=== PATIENT | female | born 1975 | race Caucasian/White ===

== ENCOUNTER 2018-12-03 12:00 | Outpatient (REF) | payer OTHER, SELFPAY ==
[2018-12-03 22:11] LABS: ALT 36 U/L (12-78); AST 23 U/L (15-37); Albumin 3.7 g/dL (3.4-5.0); Alkaline Phosphatase 78 U/L (46-116); Anion Gap 9.5 mmol/L (3-11); BUN 12 mg/dL (7-18); Bilirubin, Total 0.3 mg/dL (0.2-1.0); CO2 25.5 mmol/L (21.0-32.0); CREATININE 0.72 mg/dL (0.55-1.02); Calcium 9.3 mg/dL (8.5-10.1); Chloride 106 mmol/L (98-107); Glucose 104 mg/dL (70-100); Potassium 4.4 mmol/L (3.5-5.1); Sodium 141 mmol/L (136-145)
== END 2018-12-03 12:20 ==
LOC: NCHCN 12:00
PROVIDERS: PCP Internal Medicine; Visit Provider Family Medicine
DX: B35.1 Tinea unguium (principal); L03.031 Cellulitis of right toe
CPT/HCPCS: 80053

== ENCOUNTER 2019-01-28 09:40 | Outpatient (REF) | payer OTHER, SELFPAY ==
[2019-01-28 22:05] LABS: ALT 26 U/L (12-78); AST 19 U/L (15-37); Albumin 4.2 g/dL (3.4-5.0); Alkaline Phosphatase 86 U/L (46-116); Bilirubin, Direct 0.12 mg/dL (0.00-0.20); Bilirubin, Total 0.8 mg/dL (0.2-1.0); Total Protein 7.8 g/dL (6.4-8.2)
== END 2019-01-28 10:00 ==
LOC: NCHCN 09:40
PROVIDERS: PCP Internal Medicine; Visit Provider Family Medicine
DX: B35.1 Tinea unguium (principal)
CPT/HCPCS: 80076

== ENCOUNTER 2019-08-07 16:43 | Outpatient (REF) | payer OTHER, SELFPAY ==
--- NOTE | 2019-08-07 16:00 | PAPFT_PTH ---
PATIENT: Lindsey Gerardo LOC: [facility] U#:[id number] AGE/SX: 44/F ROOM: RE08/07/[address]: Alex Maloney MD : 1975 BED: DIS: 08/07/2019 SPEC #: [id number] RECD: 08/07/19 18:01 STATUS: ERMELINDA REMarlena #: [id number] RIN: 08/07/19 16:[address]: Alex Maloney DEPT: [facility] Cytology RECD BY: Charline Wong ENTERED: 08/07/19 18:01 SP TYPE: PAPFT OTHR DR: Erickson Seo Tissues: 1 - CX/ENDOCX FOR PAP SMEARS Procedures: PAP THIN PREP/UVM Screening HPV DNA PROBE Comments: [id number]
== END 2019-08-07 17:03 ==
LOC: LBN 16:43
PROVIDERS: PCP Internal Medicine; Visit Provider Obstetrics & Gynecology
DX: Z12.4 Encounter for screening for malignant neoplasm of cervix (principal); Z11.51 Encounter for screening for human papillomavirus (HPV)
CPT/HCPCS: 88142; 87624

== ENCOUNTER 2019-09-02 01:10 | Outpatient (CLI) | payer OTHER, SELFPAY ==
--- NOTE | 2019-09-02 11:52 | DI.MAMMO_ITS ---
EXAM: MG MAMMO SCREENING CLINICAL HISTORY: Screening malignant neoplasm of the breast. Z12.39. TECHNIQUE: Bilateral full field digital CC and MLO mammographic images were obtained with 3D tomosyn thesis and utilizing computer aided detection (CAD). COMPARISON: There are multiple priors with the most recent from 12/29/2014. FINDINGS: Masses/Architectural Distortion: None seen. Microcalcifications: No suspicious pleomorphic-type are seen. IMPRESSION: 1. No significant interval change with no specific features of malignancy noted. 2. Unless there is more urgent need, screening mammography is recommended, as per [employer] guidelines. ACR BI-RAD Category- 1 Negative Breast Density - Category B - Scattered areas of fibroglandular density A negative radiographic report should not delay biopsy if a dominant or clinically suspicious mass is present. Up to ten percent of cancers are not identified on mammography. A negative report may reinforce clinical impression. Adenosis and dense breasts may obscure an underlying neoplasm. False positive reports average 6 to 10%.
== END 2019-09-02 01:30 ==
PROVIDERS: PCP Internal Medicine; Visit Provider Obstetrics & Gynecology
DX: Z12.31 Encounter for screening mammogram for malignant neoplasm of breast (principal)
CPT/HCPCS: 77063; 77067

== ENCOUNTER 2019-09-23 08:54 | Outpatient (CLI) | payer OTHER, SELFPAY ==
[2019-09-23 09:39] LABS: Bilirubin Negative (Negative); Blood Negative (Negative); Clarity Clear (Clear); Glucose Negative (Negative); Ketones Negative (Negative); Leukocyte Esterase Negative (Negative); Nitrite Negative (Negative); Urobilinogen 0.2 EU/dL (Up TO 0.2); pH 6.5 (5-8)
[2019-09-23 10:11] LABS: Abs Immature Grans 0.01 k/cumm (0.0-0.09); Absolute Basophil Count 0.02 k/cumm (0.0-0.2); Absolute Lymphocyte Count 1.62 k/cumm (1.2-3.4); Absolute Monocyte Count 0.49 k/cumm (0.11-0.7); Absolute Neutrophil Count 4.54 k/cumm (1.2-6.7); Basophils % 0.3; Eosinophils % 2.9; HCT 42.5 % (36.0-46.0); HGB 14.3 g/dL (12.0-15.5); Immature Grans % 0.1; Lymphocytes % 23.5; Mean Corp. HGB Concentration 33.6 g/dL (32.0-36.0); Mean Corpuscular Hemoglobin 28.7 pg (27.0-33.0); Mean Corpuscular Volume 85.2 fL (80-95); Mean Platelet Volume 9.9 fL (8.0-11.0); Monocytes % 7.1; Neutrophils % 66.1; Platelet Count 289 x1000/uL (130-400); RBC 4.99 m/cumm (4.00-5.20); RBC Distribution Width 12.5 % (11.7-14.6); White Blood Cell Count 6.88 k/cumm (4.4-10.8)
[2019-09-23 10:47] LABS: Hemoglobin A1C 5.9 % (4.5-6.2)
[2019-09-23 13:33] LABS: ALT 28 U/L (14-59); AST 13 U/L (15-37); Alkaline Phosphatase 88 U/L (46-116); Anion Gap 8.6 mmol/L (3-11); BUN 11 mg/dL (7-18); CO2 27.4 mmol/L (21.0-32.0); CREATININE 0.72 mg/dL (0.55-1.02); Calcium 9.4 mg/dL (8.5-10.1); Calculated LDL 145 mg/dL; Chloride 105 mmol/L (98-107); Cholesterol 215 mg/dL (50-200); Ferritin 78 ng/mL (8-388); Glucose 97 mg/dL (70-100); HDL Cholesterol 47 mg/dL (40-60); Potassium 4.1 mmol/L (3.5-5.1); Sodium 141 mmol/L (136-145); Total Protein 7.4 g/dL (6.4-8.2); Triglyceride 117 mg/dL (30-150); Vitamin B12 573 pg/mL (193-986)
[2019-09-23 13:54] LABS: Iron 127 ug/dL (50-175); Total Iron Binding Capacity 290 ug/dL (250-450); Transferrin Sat 44 % (15-50)
[2019-09-24 05:59] LABS: Vitamin D 25 Total 72.5 ng/ml (30-100)
[2019-09-24 10:54] LABS: Campylobacter PCR SEE COMMENTS; Salmonella PCR SEE COMMENTS; Shiga Toxin PCR SEE COMMENTS; Shigella/Enteroinvasive Ecoli SEE COMMENTS
[2019-09-24 12:51] LABS: Thyroglobulin Antibody <15 U/mL (<61); Thyroperoxidase Antibody <28 U/mL (<61)
== END 2019-09-23 09:14 ==
PROVIDERS: PCP Internal Medicine; Visit Provider Naturopath
DX: E03.9 Hypothyroidism, unspecified (principal); E55.9 Vitamin D deficiency, unspecified; Z00.00 Encounter for general adult medical examination without abnormal findings; D53.9 Nutritional anemia, unspecified; D50.9 Iron deficiency anemia, unspecified; R42 Dizziness and giddiness; R53.83 Other fatigue; Z13.1 Encounter for screening for diabetes mellitus; Z13.220 Encounter for screening for lipoid disorders; K44.9 Diaphragmatic hernia without obstruction or gangrene; F51.09 Other insomnia not due to a substance or known physiological condition; R12 Heartburn; E66.9 Obesity, unspecified
CPT/HCPCS: 36415; 80053; 80061; 82306; 87505; 81003; 82607; 82728; 83036; 83540; 83550; 85025; 86376; 86800

== ENCOUNTER 2020-06-10 12:42 | Emergency (ER) | payer OTHER, SELFPAY ==
[2020-06-10] VITALS (10 sets, daily range): BP systolic 132–156; BP diastolic 59–70; PULSE 57–75; RESP 13–23; TEMP 36.8; O2SAT 98–100
--- NOTE | 2020-06-10 12:45 | RT.EKG_ITS ---
APPROVED REPORT Exam: Resting ECG Patient Location: E HR:59 bpm ECG Measurements Heart Rate 59 AXIS NV 227 P 70 QRSd 85 QRS 1 QT 401 T 16 QTc 399 <Conclusion> Sinus bradycardia...rate< 60 Prolonged NV interval...NV >210, V-rate 50- 90 Probable left atrial enlargement...P >50mS, <-0.10mV V1. No acute ST ischemic findings. I have reviewed and interpreted ECG and agree with software generated interpretation. No old EKG to compare.
--- NOTE | 2020-06-10 13:28 | ED.GENADUL_ITS ---
Discharge Plan Disposition Patient Disposition: HOME Condition: Good Discharge Details Chief Complaint: Palpitatns Clinical Impression: Chronic chest pain, Palpitations Primary Care Provider: Dalia Dougherty ED Provider: Jenise Edward Home Meds and New Rx's Prescriptions: New levothyroxine 50 mcg capsule 50 mcg PO DAILY Qty: 30 RF: 0 Continued cholecalciferol (vitamin D3) 2,000 UNIT tablet 2,000 unit PO RF: 0 Probiotic 1 EACH capsule 1 ea PO RF: 0 qnavmndkyazh-eeab-bhaac acid [Daily Multiple] 1 EACH tablet 1 ea PO RF: 0 mag/potassium 1 tab DAILY RF: 0 folic acid 0.4 MG tablet 0.4 mg PO DAILY RF: 0 liothyronine 5 MCG tablet 15 mcg PO DAILY RF: 0 Cyanocobalamin (Vitamin B-12) [Vitamin B-12] 1,000 MCG capsule 1,000 mcg PO DAILY RF: 0 albuterol sulfate 90 mcg/actuation HFA aerosol inhaler INHALATION RF: 0 Discontinued levothyroxine 75 MCG tablet 75 mcg PO DAILY RF: 0 Discharge Instructions Instructions: Heart Palpitations (ED), Chronic Pain (ED) Additional Instructions: Drink plenty of fluids and get plenty of rest. Alternate tylenol and motrin as needed and directed for pain. Return the Holter monitor to the hospital as directed. Decrease your dose of levothyroxine from 75 mcg to 50 mcg daily. Follow-up with your primary care doctor in 1 week for reevaluation and for referral for outpatient Zio patch and echocardiogram if symptoms persist or worsen and for repeat TSH level within a few weeks. Return to the emergency department with any worsening or new concerning symptoms. Discharge Data Discharge Date/Time-TO BE ENTERED AT DEPARTURE: 06/10/20 16:10 Discharge Physician: Jenise Edward Medical Decision Making 1310 -- 45-year-old female with a history of hypothyroidism, hyperlipidemia, prediabetes presents for intermittent chest pressure and palpitations for the past 3 months. Also admits to intermittent perioral and arm paresthesias. EKG notes a rate of 59, sinus with no acute ST ischemic findings. Patient appears mildly anxious. Blood pressure mildly hypertensive. No acute findings on exam. Differential diagnosis includes ACS, arrhythmia, electrolyte abnormality, anxiety, hyperthyroid due to levothyroxine, PE, dehydration. History and presentation not consistent with dissection. Patient denies any symptoms at present. Will place an IV, screening labs, chest x-ray and reassess. test negative. 1445 -- Labs and imaging reviewed. TSH 0.28. Normal free T4. Chest x-ray negative. Results discussed with patient and advised to decrease her dose of Synthroid from 75 mcg to 50 mcg daily. Advised to call her primary care doctor for follow-up for referral for outpatient recheck of TSH and free T4. Patient also had Holter monitor placed. She is advised to return as instructed. She also is advised to call her PCP on Saturday morning for follow-up and for reevaluation and for referral for zio patch and echo if symptoms do not improve or worsen. Medical Records Medical records reviewed: Yes I reviewed the patient's medical records. Imaging Data Radiologic Study: Radiologist's impression: XR CHEST 2V PA LATERAL CLINICAL HISTORY: chest pressure, r/o acute disease TECHNIQUE: 2D digital imaging was performed. COMPARISON: No exams were available for comparison FINDINGS: MEDIASTINUM: Normal. HEART: Normal. PULMONARY VASCULATURE: Normal. LUNGS: Clear. PLEURAL SPACE: No pleural effusion or pneumothorax. BONE:Normal. OTHER FINDINGS:Normal. IMPRESSION: No acute pulmonary findings. Lab Data Lab results reviewed: Yes I reviewed the patient's lab results. Labs: Laboratory Tests Range/Units 06/10/20 06/10/20 06/10/20 13:30 13:30 13:30 WBC (4.4-10.8) k/cumm 7.63 RBC (4.00-5.20) m/cumm 4.77 Hgb (12.0-15.5) g/dL 13.8 Hct (36.0-46.0) % 41.8 MCV (80-95) fL 87.6 MCH (27.0-33.0) pg 28.9 MCHC (32.0-36.0) g/dL 33.0 RDW (11.7-14.6) % 12.7 Plt Count (130-400) x1000/uL 315 MPV (8.0-11.0) fL 9.6 Immature Gran % % 0.1 Neutrophils % 64.9 Lymphocytes % 23.7 Monocytes % 8.4 Eosinophils % 2.5 Basophils % 0.4 Absolute Neutrophils (1.2-6.7) k/cumm 4.95 Absolute Lymphocytes (1.2-3.4) k/cumm 1.81 Absolute Monocytes (0.11-0.7) k/cumm 0.64 Absolute Eosinophils (0.0-0.7) k/cumm 0.19 Absolute Basophils (0.0-0.2) k/cumm 0.03 D-Dimer (<500) ng/mlFEU Sodium (136-145) mmol/L 140 Potassium (3.5-5.1) mmol/L 4.2 Chloride (98-107) mmol/L 104 Carbon Dioxide (21.0-32.0) mmol/L 29.5 Anion Gap (3-11) mmol/L 6.5 BUN (7-18) mg/dL 11 Creatinine (0.55-1.02) mg/dL 0.74 Estimated GFR/1.73 m2 (mL/min/1.73m2) >= 60.00 Glucose (74-106) mg/dL 108 H Calcium (8.5-10.1) mg/dL 9.2 Magnesium (1.8-2.4) mg/dL 2.0 Total Bilirubin (0.2-1.0) mg/dL 0.5 AST (15-37) U/L 25 ALT (14-59) U/L 38 Alkaline Phosphatase (46-116) U/L 70 Troponin I (<0.06) ng/mL < 0.05 Total Protein (6.4-8.2) g/dL 7.2 Albumin (3.4-5.0) g/dL 3.8 TSH (0.36-3.74) uIU/mL 0.28 L Free T4 (0.76-1.46) ng/dL 0.96 Range/Units 06/10/20 13:30 WBC (4.4-10.8) k/cumm RBC (4.00-5.20) m/cumm Hgb (12.0-15.5) g/dL Hct (36.0-46.0) % MCV (80-95) fL MCH (27.0-33.0) pg MCHC (32.0-36.0) g/dL RDW (11.7-14.6) % Plt Count (130-400) x1000/uL MPV (8.0-11.0) fL Immature Gran % % Neutrophils % Lymphocytes % Monocytes % Eosinophils % Basophils % Absolute Neutrophils (1.2-6.7) k/cumm Absolute Lymphocytes (1.2-3.4) k/cumm Absolute Monocytes (0.11-0.7) k/cumm Absolute Eosinophils (0.0-0.7) k/cumm Absolute Basophils (0.0-0.2) k/cumm D-Dimer (<500) ng/mlFEU 200 Sodium (136-145) mmol/L Potassium (3.5-5.1) mmol/L Chloride (98-107) mmol/L Carbon Dioxide (21.0-32.0) mmol/L Anion Gap (3-11) mmol/L BUN (7-18) mg/dL Creatinine (0.55-1.02) mg/dL Estimated GFR/1.73 m2 (mL/min/1.73m2) Glucose (74-106) mg/dL Calcium (8.5-10.1) mg/dL Magnesium (1.8-2.4) mg/dL Total Bilirubin (0.2-1.0) mg/dL AST (15-37) U/L ALT (14-59) U/L Alkaline Phosphatase (46-116) U/L Troponin I (<0.06) ng/mL Total Protein (6.4-8.2) g/dL Albumin (3.4-5.0) g/dL TSH (0.36-3.74) uIU/mL Free T4 (0.76-1.46) ng/dL ECG Data Attestation: I personally reviewed and interpreted this ECG (s) as follows: Interpretation: Rate of 59, sinus, no acute ST elevation or depression. [place] 227. QRS 85. QTc 399. HPI General Mode of arrival: ambulatory . Date/Time Provider Initiated Documentation: 06/10/20 13:07 . Limitations to Documentation: no limitations . Information obtained by: patient . HPI Narrative: Patient is a 45-year-old female with a history of hypothyroidism, hyperlipidemia and prediabetes who presents for intermittent chest pressure and palpitations for the past 3 months. 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 She states sometimes the symptoms are improved with rest. She admits to intermittent palpitations and chest pressure which wakes her from sleep at night as well. She also admits to intermittent tingling around her lips and in her left arm. She denies any fever, cough, nausea, vomiting, dizziness, shortness of breath, leg pain or swelling, recent surgery or recent travel. Denies any recent new stressors. Related Data Home Medications Medication Instructions Recorded Confirmed Probiotic 1 ea PO 12/23/13 08/07/19 cholecalciferol (vitamin D3) 2,000 unit PO 12/23/13 08/07/19 Mag/Potassium 1 tab DAILY 03/07/16 08/07/19 tdyytcpfggaz-bnwa-dqdqx acid 1 ea PO 03/07/16 [Daily Multiple] Cyanocobalamin (Vitamin B-12) 1,000 mcg PO DAILY tab 03/19/18 08/07/19 [Vitamin B-12] folic acid 0.4 mg PO DAILY tab-cap 03/19/18 08/07/19 liothyronine 15 mcg PO DAILY tab-cap 03/19/18 08/07/19 albuterol sulfate INHALATION 06/10/20 06/10/20 levothyroxine 50 mcg PO DAILY #30 cap 06/10/20 Previous Rx's Medication Instructions Recorded levothyroxine 50 mcg PO DAILY #30 cap 06/10/20 Allergies Allergy/AdvReac Type Severity Reaction Status Date / Time nickel Allergy Intermediate Rash Unverified 06/10/20 12:57 Influenza Virus Vaccines Allergy Rash, Unverified 06/10/20 12:57 swelling General Stated Complaint: Palpitatns JUAN: 3 Review of Systems All systems reviewed & are unremarkable except as noted in HPI and below Constitutional Constitutional: Reports as per HPI, Denies chills and Denies fever(s) Eyes Eyes: Denies blurry vision ENT Ears, Nose, Mouth, and Throat: Denies dizziness, Denies sore throat and Denies throat swelling Cardiovascular Cardiovascular: Reports chest pain, Reports palpitations and Denies dyspnea Respiratory Respiratory: Denies cough and Denies dyspnea Gastrointestinal Gastrointestinal: Denies abdominal pain, Denies diarrhea and Denies vomiting Genitourinary Genitourinary: Denies hematuria and Denies dysuria Musculoskeletal Musculoskeletal: Denies back pain and Denies numbness Integumentary/Breasts Skin/Breast: Denies lesions and Denies rash Neurologic Neurologic: Denies dizziness, Denies localized weakness and Denies numbness Endocrine Endocrine: Reports palpitations Allergic/Immunologic Allergic/Immunologic: Denies throat swelling [facility] Medical History (Updated 06/10/20 @ 15:38 by Jenise Edward DO) Hypothyroidism (Chronic) Prediabetes (Acute) Surgical History (Updated 06/10/20 @ 14:44 by Jenise Edward DO) No significant past surgical history (Acute) Social History Smoking/Tobacco Use Status: Never Alcohol Intake: never Substance use type: does not use Do you feel safe at home: Yes Do you feel safe in your relationship?: Yes Exam Const General: cooperative, healthy appearing and anxious (mild) HENMT Head: normal to inspection Face and sinus: normal facial exam Eyes General: appearance normal, both eyes and all related structures EOM: EOM intact bilaterally Neck Neck: normal visual inspection and No submandibular swelling Lymphatic: no lymphadenopathy noted Chest Chest: normal inspection of the chest and no tenderness Resp Effort & Inspection: normal respiratory effort and able to speak in complete sentences Auscultation: clear to auscultation bilaterally Cardio Rate: regular rate Rhythm: regular rhythm GI Inspection: normal to inspection Palpation: soft, not firm, not rigid and nontender Auscultation: normal bowel sounds Skin General skin exam: no rashes or lesions noted Neuro General: patient alert, patient awake and patient oriented x3 Cognition: normal cognition Speech: speech normal Motor: muscle tone normal throughout Sensory Exam: no sensory deficits noted Extrem General: normal to inspection, full ROM, capillary refill normal, no calf tenderness bilaterally and no edema Psych Appearance: grossly normal Mental Status: mental status grossly normal Speech and Movement: speech and movement normal Affect: normal affect Course Vital Signs Vital signs: Vital Signs Temperature 98.2 F 06/10/20 12:51 Pulse 64 06/10/20 12:51 Respiratory Rate 18 06/10/20 12:51 Blood Pressure 156/59 H 06/10/20 12:51 Pulse Oximetry 99 06/10/20 12:51 Temperature 98.2 F 06/10/20 12:51 Temperature Source Skin 06/10/20 12:51 Pulse 64 06/10/20 12:51 Respiratory Rate 18 06/10/20 12:51 Respiratory Effort 06/10/20 12:56 Blood Pressure 156/59 H 06/10/20 12:51 Pulse Oximetry 99 06/10/20 12:51 Oxygen Delivery Method Room Air 06/10/20 12:51 Oxygen Flow Rate 0 06/10/20 12:51 Pain Level 1 06/10/20 12:51
[2020-06-10 13:42] LABS: Abs Immature Grans 0.01 k/cumm (0.0-0.09); Absolute Basophil Count 0.03 k/cumm (0.0-0.2); Absolute Eosinophil Count 0.19 k/cumm (0.0-0.7); Absolute Lymphocyte Count 1.81 k/cumm (1.2-3.4); Absolute Monocyte Count 0.64 k/cumm (0.11-0.7); Absolute Neutrophil Count 4.95 k/cumm (1.2-6.7); Basophils % 0.4; Eosinophils % 2.5; HCT 41.8 % (36.0-46.0); HGB 13.8 g/dL (12.0-15.5); Immature Grans % 0.1 %; Lymphocytes % 23.7; Mean Corpuscular Hemoglobin 28.9 pg (27.0-33.0); Mean Corpuscular Volume 87.6 fL (80-95); Mean Platelet Volume 9.6 fL (8.0-11.0); Monocytes % 8.4; Neutrophils % 64.9; Platelet Count 315 x1000/uL (130-400); RBC 4.77 m/cumm (4.00-5.20); RBC Distribution Width 12.7 % (11.7-14.6); White Blood Cell Count 7.63 k/cumm (4.4-10.8)
--- NOTE | 2020-06-10 13:45 | DI.RAD_ITS ---
EXAM: XR CHEST 2V PA LATERAL CLINICAL HISTORY: chest pressure, r/o acute disease TECHNIQUE: 2D digital imaging was performed. COMPARISON: No exams were available for comparison FINDINGS: MEDIASTINUM: Normal. HEART: Normal. PULMONARY VASCULATURE: Normal. LUNGS: Clear. PLEURAL SPACE: No pleural effusion or pneumothorax. BONE:Normal. OTHER FINDINGS:Normal. IMPRESSION: No acute pulmonary findings. DATA REPOSITORY: RADIATION DOSE DELIVERED:
[2020-06-10 13:59] LABS: ALT 38 U/L (14-59); AST 25 U/L (15-37); Albumin 3.8 g/dL (3.4-5.0); Alkaline Phosphatase 70 U/L (46-116); Anion Gap 6.5 mmol/L (3-11); BUN 11 mg/dL (7-18); Bilirubin, Total 0.5 mg/dL (0.2-1.0); CO2 29.5 mmol/L (21.0-32.0); CREATININE 0.74 mg/dL (0.55-1.02); Calcium 9.2 mg/dL (8.5-10.1); Chloride 104 mmol/L (98-107); Glucose 108 mg/dL (74-106); Potassium 4.2 mmol/L (3.5-5.1); Sodium 140 mmol/L (136-145); Total Protein 7.2 g/dL (6.4-8.2); Troponin I < 0.05 ng/mL (<0.06)
[2020-06-10 14:06] LABS: TSH (W/Ref FT4) 0.28 uIU/mL (0.36-3.74)
[2020-06-10 14:22] LABS: FREE T4 0.96 ng/dL (0.76-1.46)
[2020-06-10 14:35] LABS: D-Dimer 200 ng/mlFEU (<500)
== END 2020-06-10 16:10 | disposition home or self-care (01) ==
PROVIDERS: Emergency Provider Physician Assistant; PCP Nurse Practitioner Family
DX: R00.2 Palpitations (principal); R07.89 Other chest pain; G89.29 Other chronic pain; R73.03 Prediabetes; R20.2 Paresthesia of skin; E03.9 Hypothyroidism, unspecified
CPT/HCPCS: 36415; 80053; 82962; 93005; 99285; 71046; 83735; 84439; 84443; 84484; 85025; 85379; 93010; 93225

== ENCOUNTER 2020-06-13 10:42 | Outpatient (CLI) | payer OTHER, SELFPAY ==
--- NOTE | 2020-06-14 08:14 | W.HOLTRPT ---
Date of service: 06/14/20 Time of Service: 08:14 Holter Monitor Report Holter Monitor Note: This is a 48-hour Holter monitor The rhythm throughout was sinus. Average heart rate was 76 bpm. Minimum was 53 and maximum 147 There were no ventricular dysrhythmias There were very rare atrial premature beats, a total of 7 in 48 hours Patient symptoms of palpitations and chest pain did not correspond to any dysrhythmia
== END 2020-06-13 11:02 ==
PROVIDERS: PCP Nurse Practitioner Family; Visit Provider Physician Assistant
DX: R00.2 Palpitations (principal); R07.9 Chest pain, unspecified
CPT/HCPCS: 93226

== ENCOUNTER 2020-07-22 07:23 | Outpatient (CLI) | payer OTHER, SELFPAY ==
[2020-07-23 14:49] LABS: COVID-19 RT-PCR Result NEGATIVE (Negative)
== END 2020-07-22 07:43 ==
PROVIDERS: PCP Nurse Practitioner Family; Visit Provider Surgery
DX: Z11.59 Encounter for screening for other viral diseases (principal); Z01.818 Encounter for other preprocedural examination
CPT/HCPCS: U0003

== ENCOUNTER 2020-07-26 08:18 | Day surgery (SDC) | payer OTHER, SELFPAY ==
--- NOTE | 2020-07-26 08:29 | PDOC.DSDIS_ITS ---
Discharge Plan Disposition Patient Disposition: HOME Condition: Good Discharge Details Reason For Visit: EGD Attending Provider: Britta Jones Primary Care Provider: Dalia Dougherty Home Meds and New Rx's Prescriptions: Continued cholecalciferol (vitamin D3) 2,000 UNIT tablet 2,000 unit PO DAILY RF: 0 Probiotic 1 EACH capsule 1 ea PO DAILY RF: 0 Daily Multiple 1 EACH tablet 1 ea PO DAILY RF: 0 mag/potassium 1 tab DAILY RF: 0 folic acid 0.4 MG tablet 0.4 mg PO DAILY RF: 0 liothyronine 5 MCG tablet 15 mcg PO DAILY RF: 0 Cyanocobalamin (Vitamin B-12) [Vitamin B-12] 1,000 MCG capsule 1,000 mcg PO DAILY RF: 0 acyclovir 400 mg tablet 400 mg PO DAILY RF: 0 omeprazole 20 mg capsule,delayed release(DR/EC) 20 mg PO BID RF: 0 Zyrtec 10 mg capsule 10 mg PO DAILY RF: 0 fexofenadine 180 mg tablet 180 mg PO DAILY RF: 0 fluticasone propionate [Flonase Allergy Relief] 50 mcg/actuation spray,suspension 1 spray JOSE DAILY RF: 0 ProAir RespiClick 90 mcg/actuation aerosol powdr breath activated 2 inh IH Q6H PRNRF: 0 levothyroxine 50 mcg capsule 50 mcg PO DAILY Qty: 30 RF: 0 Discharge Instructions Additional Instructions: Findings: The stomach and esophagus looked normal with the exception of a small hiatal hernia. Routine biopsies were done - my office will contact you if abnormal. Please call if you develop: fevers >101.5 Nausea or Vomiting Chest or Abdominal pain that is not tr ansient DAY SURGERY UNIT POST EGD INSTRUCTIONS 1. Because there will be medication in your system for the next 24 hours, you may feel a little sleepy. Your coordination will be affected. Therefore: a. Do not drive or operate dangerous equipment for 24 hours. b. Do not drink alcohol beverages for 24 hours (not even beer). c. Plan to go home and rest for the day. 2. Generally there are no restrictions on your activity after a day or so has gone by, but you may feel a bit fatigued for a few days. 3 After you arrive home you may have a light meal and return to a normal diet as you can tolerate it without feeling sick to your stomach. 4. After surgery, you may feel pain or discomfort. This should be only transient, but if it persists please contact your doctor. 5. If there are any questions regarding the findings of your procedure, please feel free to contact your doctor. 6. If you are unable to contact your doctor with a problem, contact the hospital at [phone]. 7. Continue all your regular medications unless directed otherwise. I understand the above instructions and have no questions. Signature of Patient or Responsible Adult Escort Date/Time Name of Responsible Adult Escort Signature of Nurse Date/Time Activity:: Activity as Tolerated Diet:: As Tolerated Discharge Orders Discharge Orders: Discharge Order (Routine); Ordered 07/26/20 Ordered By: Britta Jones DS: Diagnosis Discharge Diagnosis (1) Hiatal hernia: Status: Chronic
--- NOTE | 2020-07-26 08:30 | W.PM.ENDDOP ---
Date of service: 07/26/20 Time of Service: 09:38 Endoscopy Report DATE OF PROCEDURE: 07/26/20 PRE-OP DIAGNOSIS: GERD POST-OP DIAGNOSIS: other (Small hiatal hernia) PROCEDURE: EGD with gastric and duodenal biopsies SURGEON: Britta Jones ANESTHESIA: MAC INDICATIONS: This 45 year old woman presents for evaluation of acid reflux. She has epigastric pain, nausea and a fullness in her throat. Prior EGD about 15 years ago showed esophagitis. PROCEDURE DESCRIPTION: The patient was placed in the left lateral position and propofol titrated to sedation. The endoscope was advanced into the esophagus under direct visualization. The scope was passed through the stomach and into the duodenum. There was no duodenitis or ulceration noted. Biopsies were taken from the second portion of the duodenum to evaluate for celiac disease. The stomach itself was normal including on retroflexed view of the fundus and lesser curvature with the exception of a small hiatal hernia. Routine biopsies were taken from the gastric antrum. The GE junction was inspected and showed no significant stricture, inflammation, masses or Barretts. The scope was slowly withdrawn with no other esophageal lesions found. The patient tolerated the procedure well and was stable to recovery.
[2020-07-26 08:33] VITALS: BP 130/83; PULSE 69; RESP 16; TEMP 36.6; O2SAT 97
[2020-07-26] MEDS: Lactated Ringers 1,000 ML 80 ML IV (09:09)
--- NOTE | 2020-07-26 09:23 | STOM_PTH ---
PATIENT: Lindsey Gerardo LOC: [facility] U#:[id number] AGE/SX: 45/F ROOM: RE07/26/[address]: Britta Jones MD : 1975 BED: DIS: 07/26/2020 SPEC #: [id number] RECD: 07/26/20 12:35 STATUS: ERMELINDA REMarlena #: [id number] RIN: 07/26/20 09:[address]: Britta Jones DEPT: Surgical Specimen RECD BY: Charline Wong ENTERED: 07/26/20 12:36 SP TYPE: STOMACH OTHR DR: Dalia Dougherty Tissues: 1 - BIOPSY BOWEL 2 - STOMACH BIOPSY Procedures: GROSS AND MICRO LEVEL 4 Comments: [id number]
[2020-07-26 10:10] VITALS: BP 125/82; PULSE 57; RESP 16; TEMP 36.6; O2SAT 94
== END 2020-07-26 10:19 | disposition home or self-care (01) ==
PROVIDERS: PCP Nurse Practitioner Family; Visit Provider Surgery
PROC: 0DJ68ZZ Inspection of Stomach, Via Natural or Artificial Opening Endoscopic (ICD-10-PCS; CPT 43235; principal; 2020-07-26 09:15)
DX: K21.9 Gastro-esophageal reflux disease without esophagitis (principal); K44.9 Diaphragmatic hernia without obstruction or gangrene
CPT/HCPCS: 43239; 88305; J2001

== ENCOUNTER 2020-07-29 04:02 | Outpatient (CLI) | payer OTHER, SELFPAY ==
--- NOTE | 2020-07-29 06:15 | DI.US_ITS ---
EXAM: US ABDOMEN CLINICAL HISTORY: Epigastric pain, nausea,r10.13 TECHNIQUE: Ultrasound performed using standard protocol. COMPARISON: US PELVIS TRANSVAG from 03/28/2011 FINDINGS: Examination was technically limited due to the patient's body habitus. Significant portions of the l iver were nonvisualized. There is increased hepatic echogenicity consistent with hepatic steatosis. No evidence of cholelithiasis or biliary dilatation. Pancreas incompletely visualized, grossly intact as seen. Spleen is unremarkable. Kidneys are normal in size and shape with no hydronephrosis or nephrolithias is. Abdominal aorta and IVC are of normal diameter. IMPRESSION: Limited study. Probable hepatic steatosis. No evidence of cholelithiasis. DATA REPOSITORY:
== END 2020-07-29 04:22 ==
PROVIDERS: PCP Nurse Practitioner Family; Visit Provider Surgery
DX: R10.13 Epigastric pain (principal)
CPT/HCPCS: 76700

== ENCOUNTER 2020-07-29 15:13 | Outpatient (REF) | payer OTHER, SELFPAY ==
[2020-07-29 21:14] LABS: TSH (W/Ref FT4) 0.74 uIU/mL (0.36-3.74)
== END 2020-07-29 15:33 ==
LOC: NCHCN 15:13
PROVIDERS: PCP Nurse Practitioner Family; Visit Provider Nurse Practitioner Family
DX: E03.9 Hypothyroidism, unspecified (principal)
CPT/HCPCS: 84443

== ENCOUNTER 2020-08-12 20:04 | Outpatient (REF) | payer OTHER, SELFPAY ==
[2020-08-15 14:09] LABS: IgA 162 mg/dL (85-499); Interpretation (See Note); Tissue Transglutaminase IgA <1.2 U/mL (<4.0)
== END 2020-08-12 20:24 ==
LOC: NCHCN 20:04
PROVIDERS: PCP Nurse Practitioner Family; Visit Provider Surgery
DX: R10.13 Epigastric pain (principal)
CPT/HCPCS: 82784; 83516

== ENCOUNTER 2020-09-09 12:02 | Outpatient (REF) | payer OTHER, SELFPAY ==
--- NOTE | 2020-09-09 09:30 | PAPFT_PTH ---
PATIENT: Lindsey Gerardo LOC: [facility] #:[id number] AGE/SX: 45/F ROOM: RE09/09/[address]: Alex Maloney MD : 1975 BED: DIS: 09/09/2020 SPEC #: [id number] RECD: 09/09/20 15:05 STATUS: ERMELINDA REMarlena #: [id number] RIN: 09/09/20 09:[address]: Alex Maloney DEPT: [facility] Cytology RECD BY: Bev Hauser ENTERED: 09/09/20 15:05 SP TYPE: PAPFT OTHR DR: Dalia Dougherty Tissues: 1 - CX/ENDOCX FOR PAP SMEARS Procedures: PAP THIN PREP/UVM Screening HPV DNA PROBE Comments: [id number]
== END 2020-09-09 12:22 ==
LOC: LBN 12:02
PROVIDERS: PCP Nurse Practitioner Family; Visit Provider Obstetrics & Gynecology
DX: Z12.4 Encounter for screening for malignant neoplasm of cervix (principal); Z11.51 Encounter for screening for human papillomavirus (HPV)
CPT/HCPCS: 88142; 87624

== ENCOUNTER 2021-08-10 17:19 | Outpatient (REF) | payer OTHER, SELFPAY ==
[2021-08-10 21:57] LABS: Abs Immature Grans 0.01 10^3/uL (0.0-0.06); Absolute Basophil Count 0.03 10^3/uL (0.0-0.2); Absolute Eosinophil Count 0.21 10^3/uL (0.0-0.7); Absolute Lymphocyte Count 1.48 10^3/uL (1.2-3.4); Absolute Monocyte Count 0.74 10^3/uL (0.1-0.8); Absolute Neutrophil Count 2.91 10^3/uL (1.2-6.7); Basophils % 0.6; Eosinophils % 3.9; HCT 43.4 % (36.0-46.0); HGB 14.3 g/dL (11.2-15.7); Immature Grans % 0.2; Lymphocytes % 27.5; MCH 28.2 pg (27.0-33.0); MCHC 32.9 % (32.0-36.0); MCV 85.6 fL (80-95); MPV 10.9 fL (8.0-11.0); Monocytes % 13.8; Nucleated RBC 0 %; Platelet Count 264 10^3/uL (130-400); RBC 5.07 10^6/uL (3.93-5.22); RDW 11.9 % (11.7-14.6); RDW-SD 37.4 fL; WBC 5.38 10^3/uL (4.4-10.8)
[2021-08-10 22:12] LABS: ALT 24 U/L (14-59); AST 17 U/L (15-37); Albumin 3.8 g/dL (3.4-5.0); Alkaline Phosphatase 79 U/L (46-116); Anion Gap 9.6 mmol/L (3-11); BUN 10 mg/dL (7-18); Bilirubin, Total 0.5 mg/dL (0.2-1.0); CO2 25.4 mmol/L (21.0-32.0); CREATININE 0.8 mg/dL (0.55-1.02); Calcium 9.1 mg/dL (8.5-10.1); Chloride 105 mmol/L (98-107); Glucose 107 mg/dL (74-106); Lipase 99 U/L (73-393); Potassium 3.9 mmol/L (3.5-5.1); Sodium 140 mmol/L (136-145); Total Protein 7.2 g/dL (6.4-8.2)
[2021-08-12 15:08] LABS: COVID-19 RT-PCR UVMMC Result Negative (Negative)
== END 2021-08-10 17:20 | disposition home or self-care (01) ==
LOC: NCHCN 17:19
PROVIDERS: PCP Nurse Practitioner Family; Visit Provider Nurse Practitioner Family
DX: J06.9 Acute upper respiratory infection, unspecified (principal); R10.9 Unspecified abdominal pain; R19.7 Diarrhea, unspecified; Z20.822 Contact with and (suspected) exposure to COVID-19
CPT/HCPCS: 80053; 83690; U0003; 85025; 87086

== ENCOUNTER 2021-11-30 12:37 | Outpatient (REF) | payer OTHER, SELFPAY ==
--- NOTE | 2021-11-30 11:00 | PAPFT_PTH ---
PATIENT: Lindsey Gerardo LOC: [facility] U#:[id number] AGE/SX: 46/F ROOM: RE11/30/[address]: KRISTY Ruby : 1975 BED: DIS: 11/30/2021 SPEC #: [id number] RECD: 11/30/21 13:05 STATUS: ERMELINDA REMarlena #: [id number] RIN: 11/30/21 11:[address]: Rosenda Oliva DEPT: [facility] Cytology RECD BY: Charline Wong ENTERED: 11/30/21 13:06 SP TYPE: PAPFT OTHR DR: Dalia Dougherty Tissues: 1 - CX/ENDOCX FOR PAP SMEARS Procedures: PAP THIN PREP/UVM Screening HPV DNA PROBE Comments: [id number]
== END 2021-11-30 12:38 | disposition home or self-care (01) ==
LOC: LBN 12:37
PROVIDERS: PCP Nurse Practitioner Family; Visit Provider Nurse Practitioner Family
DX: Z12.4 Encounter for screening for malignant neoplasm of cervix (principal); Z11.51 Encounter for screening for human papillomavirus (HPV)
CPT/HCPCS: 88142; 87624

== ENCOUNTER 2021-12-29 02:27 | Outpatient (CLI) | payer OTHER, SELFPAY ==
--- NOTE | 2021-12-29 08:00 | DI.MAMMO_ITS ---
Exam(s) MAMMO SCREENING EXAM: MAMMO SCREENING CLINICAL HISTORY: screening TECHNIQUE: Bilateral full field digital CC and MLO mammographic images were obtained with 3D tomosyn thesis and utilizing computer aided detection (CAD). COMPARISON: Available for comparison. FINDINGS: Masses/Architectural Distortion: None seen. Microcalcifications: No suspicious pleomorphic-type are seen. Skin Thickening/Nipple Retraction: None. IMPRESSION: 1. No significant interval change with no specific features of malignancy noted. 2. Unless there is more urgent need, screening mammography is recommended, as per [employer] [employer] guidelines. BI-RADS Category 1 - Negative Breast Density - Category B - Scattered areas of fibroglandular density Breast density category C or D implies that the patient has dense breast tissue. Dense breast tissue is very common and is not abnormal but dense breast tissue can make it harder to find cancer on a ma mmogram. Also, dense breast tissue may increase their breast cancer risk. This information about the result of the mammogram report was provided to the patient to raise their awareness. Use this report when you speak with the patient about their risks for breast cancer, which includes their family hist ory. At that time, you may recommend for more screening tests (Ultrasound or MRI) as they might be us eful based on their risk. A negative radiographic report should not delay biopsy if a dominant or clinically suspicious mass is present. Up to ten percent of cancers are not identified on mammography. A negative report may reinforce clinical impression. Adenosis and dense breasts may obscure an underlying neoplasm. False positive reports average 6 to 10%. Patient will receive a letter notifying them of these results.
== END 2021-12-29 02:47 ==
PROVIDERS: PCP Nurse Practitioner Family; Visit Provider Nurse Practitioner Family
DX: Z12.31 Encounter for screening mammogram for malignant neoplasm of breast (principal)
CPT/HCPCS: 77063; 77067

== ENCOUNTER 2022-10-31 23:49 | Outpatient (REF) | payer OTHER, SELFPAY ==
[2022-10-31 22:34] LABS: FREE T4 0.94 ng/dL (0.76-1.46); TSH 1.51 uIU/mL (0.36-3.74)
== END 2022-10-31 23:50 | disposition home or self-care (01) ==
LOC: NCHCN 23:49
PROVIDERS: PCP Nurse Practitioner Family; Visit Provider Nurse Practitioner Family
DX: E03.9 Hypothyroidism, unspecified (principal)
CPT/HCPCS: 84439; 84443

== ENCOUNTER 2022-12-28 13:12 | Outpatient (REF) | payer OTHER, SELFPAY ==
--- NOTE | 2022-12-28 11:30 | PAPFT_PTH ---
PATIENT: Lindsey Gerardo LOC: [facility] U#:[id number] AGE/SX: 47/F ROOM: RE12/28/[address]: Courtney Leon CNM : 1975 BED: DIS: 12/28/2022 SPEC #: [id number] RECD: 12/28/22 17:04 STATUS: ERMELINDA REQ #: [id number] RIN: 12/28/22 11:[address]: Courtney Leon DEPT: [facility] Cytology RECD BY: Charline Wong ENTERED: 12/28/22 17:04 SP TYPE: PAPFT OTHR DR: Dalia Dougherty Tissues: 1 - CX/ENDOCX FOR PAP SMEARS Procedures: PAP THIN PREP/UVM Screening HPV DNA PROBE Comments: [id number]
== END 2022-12-28 13:13 | disposition home or self-care (01) ==
LOC: LBN 13:12
PROVIDERS: PCP Nurse Practitioner Family; Visit Provider Advanced Practice Midwife
DX: Z12.4 Encounter for screening for malignant neoplasm of cervix (principal); Z11.51 Encounter for screening for human papillomavirus (HPV)
CPT/HCPCS: 88142; 87624

== ENCOUNTER 2023-03-06 02:01 | Outpatient (CLI) | payer BC, SELFPAY ==
--- NOTE | 2023-03-06 09:08 | DI.MAMMO_ITS ---
Exam(s) MAMMO SCREENING EXAM: MAMMO SCREENING CLINICAL HISTORY: screening TECHNIQUE: Mammograms were interpreted according to the usual protocol including computer analysis w [employer] CAD system, tomosynthesis and C-view imaging. COMPARISON: 2014 through 2021 FINDINGS: The breasts are composed of scattered fibroglandular densities, Breast Density category B. No suspicious masses or suspicious microcalcifications are seen. No skin thickening or abnormal axillary lymph nodes are seen. There has been no significant change from prior exams. IMPRESSION: BI-RADS Category 1, Negative mammogram Yearly screening mammography is recommended. Breast Density - Category B, scattered fibroglandular densities. A negative radiographic report should not delay biopsy if a dominant or clinically suspicious mass is present. Up to ten percent of cancers are not identified on mammography. A negative report may reinforce clinical impression. Adenosis and dense breasts may obscure an underlying neoplasm. False positive reports average 6 to 10%. Patient will receive a letter notifying them of these results.
== END 2023-03-06 02:21 ==
PROVIDERS: PCP Nurse Practitioner Family; Visit Provider Advanced Practice Midwife
DX: Z12.31 Encounter for screening mammogram for malignant neoplasm of breast (principal)
CPT/HCPCS: 77063; 77067

== ENCOUNTER 2023-08-28 11:23 | Outpatient (REF) | payer BC, SELFPAY ==
[2023-08-28 16:25] LABS: TSH (W/Ref FT4) 1.52 uIU/mL (0.36-3.74)
== END 2023-08-28 11:24 | disposition home or self-care (01) ==
LOC: NCHCN 11:23
PROVIDERS: PCP Nurse Practitioner Family; Visit Provider Family Medicine
DX: E03.9 Hypothyroidism, unspecified (principal); R73.03 Prediabetes
CPT/HCPCS: 84443

== ENCOUNTER 2024-02-05 09:50 | Outpatient (REF) | payer BC, SELFPAY ==
--- NOTE | 2024-02-05 09:00 | PAPFT_PTH ---
PATIENT: Lindsey Gerardo LOC: [facility] U#:[id number] AGE/SX: 49/F ROOM: RE02/05/[address]: Niurka Beach MD : 1975 BED: DIS: 02/05/2024 SPEC #: [id number] RECD: 02/05/24 13:13 STATUS: ERMELINDA MOHAN #: [id number] RIN: 02/05/24 09:[address]: Niurka Beach DEPT: [facility] Cytology RECD BY: Charline Wong ENTERED: 02/05/24 13:13 SP TYPE: PAPFT OTHR DR: Monica Senior Tissues: 1 - CX/ENDOCX FOR PAP SMEARS Procedures: PAP THIN PREP/[facility] Screening HPV DNA PROBE Comments: [id number]
--- NOTE | 2024-02-05 09:15 | CER_PTH ---
PATIENT: Lindsey Gerardo LOC: [facility] U#:[id number] AGE/SX: 49/F ROOM: RE02/05/[address]: Niurka Beach MD : 1975 BED: DIS: 02/05/2024 SPEC #: [id number] RECD: 02/05/24 12:48 STATUS: ERMELINDA REMarlena #: [id number] RIN: 02/05/24 09:[address]: Niurka Beach DEPT: Surgical Specimen RECD BY: Charline Wong ENTERED: 02/05/24 12:48 SP TYPE: CER OTHR DR: Monica Senior Tissues: 1 - CERVICAL BIOPSY Procedures: GROSS AND MICRO LEVEL 4 Comments: [id number]
== END 2024-02-05 09:51 | disposition home or self-care (01) ==
LOC: LBN 09:50
PROVIDERS: PCP Family Medicine; Visit Provider Obstetrics & Gynecology
DX: N84.0 Polyp of corpus uteri (principal)
CPT/HCPCS: 88142; 88305; 87624

== ENCOUNTER 2024-09-16 16:04 | Outpatient (REF) | payer BC, SELFPAY ==
[2024-09-16 15:25] LABS: Hemoglobin A1C 5.8 % (<5.7)
[2024-09-16 19:11] LABS: Calculated LDL 159 mg/dL (<100); Cholesterol 246 mg/dL (<200); HDL Cholesterol 48 mg/dL (40-60); TSH (W/Ref FT4) 3.27 uIU/mL (0.36-3.74); Triglyceride 197 mg/dL (<150)
== END 2024-09-16 16:05 | disposition home or self-care (01) ==
LOC: NCHCN 16:04
PROVIDERS: PCP Family Medicine; Visit Provider Family Medicine
DX: R73.03 Prediabetes (principal); E03.9 Hypothyroidism, unspecified
CPT/HCPCS: 80061; 83036; 84443

== ENCOUNTER 2025-03-17 01:50 | Outpatient (CLI) | payer OTHER, SELFPAY ==
--- NOTE | 2025-03-17 12:15 | DI.MAMMO_ITS ---
Exam(s) MAMMO SCREENING EXAM: MAMMO SCREENING CLINICAL HISTORY: screening. TECHNIQUE: Bilateral full field digital CC and MLO mammographic images were obtained with 3D tomosyn thesis and utilizing computer aided detection (CAD). COMPARISON: Prior mammograms were reviewed. FINDINGS: There has been no significant change in the appearance and distribution of the fibroglandular tissue. There are no CAD designations. No new left breast findings. In the right breast on the MLO view there is an asymmetric density-possible nodule located cm in from the nipple on the MLO view measuring approximately 5 x 4 mm. There are no malignant-appearing microcalcification groups is region or elsewhere in either breast. There is no significant architectural distortion nor skin thickening-retraction. IMPRESSION: 1. No radiographic evidence of malignancy in left breast. 2. Asymmetric density-possible nodule in the right breast. Recommend right breast spot compression M LO view and breast BI-RADS Category 0 - Incomplete: Need additional imaging evaluation Breast Density - Category B - Scattered areas of fibroglandular density Breast density Category C or D implies that the patient has dense breast tissue. Dense breast tissue can make it harder to find cancer on a mammogram. Dense breast tissue is also associated with an incr eased risk of breast cancer. This information about the result of the mammogram report was provided to the patient to raise their awareness. Use this report when you speak with the patient about their risks for breast cancer, which includes their family history. At that time, you may recommend additional screening tests (Ultrasoun d or MRI) as these tests may add significant information. A negative radiographic report should not delay biopsy if a dominant or clinically suspicious mass is present. Up to ten percent of cancers are not identified on mammography. A negative report may reinforce clinical impression. Adenosis and dense breasts may obscure an underlying neoplasm. False positive reports average 6 to 10%. Patient will receive a letter notifying them of these results.
== END 2025-03-17 02:10 ==
LOC: DI 01:50
PROVIDERS: PCP Family Medicine; Visit Provider Obstetrics & Gynecology
DX: Z12.31 Encounter for screening mammogram for malignant neoplasm of breast (principal); R92.323 Mammographic fibroglandular density, bilateral breasts
CPT/HCPCS: 77063; 77067

== ENCOUNTER 2025-04-07 00:30 | Outpatient (CLI) | payer OTHER, SELFPAY ==
--- NOTE | 2025-04-07 | DI.US_ITS ---
Exam(s) MG MAMMO SCREEN CALL BACK UNI US BREAST RT LIMITED EXAM: MG MAMMO SCREEN CALL BACK UNI CLINICAL HISTORY: F/U ABNL MAMMO, ASYMMETRIC DENSITY, RT,? NODULE ON RT,r92.8. TECHNIQUE: Craniocaudal and mediolateral oblique spot compression digital Mammography views of the r ight breast with Tomosynthesis and right breast ultrasound. COMPARISON: MG MG MAMMO SCREENING from 03/17/2025 US US BREAST RT LIMITED from 04/07/2025 and exams back to 2014 FINDINGS: Mammography/Tomosynthesis: Masses: The area of nodularity in question in the central breast on the MLO view disperses on kb william. No corresponding abnormalities identified on CC view. Architectural Distortion: None seen. Microcalcifictions: No suspicious pleomorphic-type are seen. Skin Thickening/Nipple Retraction: None. Right breast US: Echotexture: Normal appearance of the glandular tissue. Shadowing: No suspicious foci. Cyst: None. Solid lesions: None seen. Ductal dilation: None. IMPRESSION: 1. No evidence of malignancy is noted. 2. Unless there is more urgent need, follow-up screening mammography is recommended, as per [place] [employer] guidelines. 3. The findings were discussed with the patient on the date of the examination. BI-RADS Category 2 - Benign Findings Breast Density - Category B - There are scattered areas of fibroglandular density. Breast density Category C or D implies that the patient has dense breast tissue. Dense breast tissue can make it harder to find cancer on a mammogram. Dense breast tissue is also associated with an incr eased risk of breast cancer. This information about the result of the mammogram report was provided to the patient to raise their awareness. Use this report when you speak with the patient about their risks for breast cancer, which includes their family history. At that time, you may recommend additional screening tests (Ultrasoun d or MRI) as these tests may add significant information. A negative radiographic report should not delay biopsy if a dominant or clinically suspicious mass is present. Up to ten percent of cancers are not identified on mammography. A negative report may reinforce clinical impression. Adenosis and dense breasts may obscure an underlying neoplasm. False positive reports average 6 to 10%. Patient will receive a letter notifying them of these results.
== END 2025-04-07 00:50 ==
LOC: DI 00:30
PROVIDERS: PCP Family Medicine; Visit Provider Obstetrics & Gynecology
DX: Z12.31 Encounter for screening mammogram for malignant neoplasm of breast (principal); R92.8 Other abnormal and inconclusive findings on diagnostic imaging of breast; R92.323 Mammographic fibroglandular density, bilateral breasts; D24.1 Benign neoplasm of right breast
CPT/HCPCS: 76642; 77063; 77067

== ENCOUNTER 2025-11-03 15:23 | Outpatient (REF) | payer OTHER, SELFPAY ==
[2025-11-03 21:13] LABS: Cholesterol 238 mg/dL (<200); HDL Cholesterol 48 mg/dL (>40); Hemoglobin A1C 5.9 % (<5.7)
[2025-11-03 21:17] LABS: TSH (W/Ref FT4) 2.47 uIU/mL (0.55-4.78)
== END 2025-11-03 15:24 | disposition home or self-care (01) ==
LOC: NCHCN 15:23
PROVIDERS: PCP Family Medicine; Visit Provider Family Medicine
DX: R73.03 Prediabetes (principal); E03.9 Hypothyroidism, unspecified; E78.5 Hyperlipidemia, unspecified
CPT/HCPCS: 80061; 83036; 84443